=== PATIENT | male | born 1985 | race Caucasian/White ===

== ENCOUNTER 2016-11-03 17:14 | Emergency (ER) | payer MEDICARE, OTHER ==
--- NOTE | ~2016-11-03 | CT71 ---
[facility] A Service of [facility] RADIOLOGY TEXT RESULTS PATIENT: GURWINDER MELENDEZ LOCATION: SED : [birth year] UNIT #: [id number] AGE: [address]: Brandon Warren MD SEX: M ORDER DR: [id number] [place] [id number] E MR#: [id number] [facility] #: [id number] NAME: GURWINDER MELENDEZ : 1985 SEX: M STUDY DATE/TIME: 11/03/2016 18:20 UNIT: SED ROOM: STUDY DESCRIPTION: CT Head Wo Contrast Attending Physician: Brandon Warren M.D. Ordering Physician: Brandon Warren M.D. Primary Care Physician: Bryson Lopes M.D. MEDICAL IMAGING REPORT This report is preliminary unless electronic signature is present. EXAM Head CT without contrast, 11/03/2016 HISTORY Diffuse headache after hitting head today. Hypertension. FINDINGS Multiple axial images were obtained from the skull base to vertex without intravenous contrast administration. This CT exam was performed with one or more of the following radiation dose reduction techniques: Automatic exposure control, adjustment of mA and/or kV according to patient size, and iterative reconstruction. There is stable moderate encephalomalacia in the inferior frontal lobes bilaterally compared with 04/01/[address] Additional areas of cortical atrophy are seen in the lateral right temporal lobe. Prior right frontotemporal craniotomy is noted. Stable small chronic cortical infarcts are again seen in the parasagittal superior right frontal lobe and parasagittal anterior frontal lobes, bilaterally. Old lacunar infarcts are seen in the basal ganglia, bilaterally. There is no midline shift. Generalized atrophy. There is no mass or mass effect, hemorrhage or acute infarct. The visualized paranasal sinuses are clear. IMPRESSION Generalized atrophy and stable bilateral chronic infarcts compared with 04/01/[address] Prior right frontotemporal craniotomy. No acute intracranial abnormality. Dictated by... Zeb Becerril M.D. [facility] A Service of [facility] RADIOLOGY TEXT RESULTS PATIENT: GURWINDER MELENDEZ [place] [facility] [place] [birth year] UNIT #: [id number] AGE: [address]: Brandon Warren MD SEX: M ORDER DR: THIS IS AN ELECTRONICALLY VERIFIED REPORT Zeb Becerril M.D. at 11/04/2016 2:13 PM KRT/maddie TD: 11/03/2016 23:57 JOB #: [id number] MEDICAL IMAGING REPORT Page 1 of 1
--- NOTE | ~2016-11-03 | CT52 ---
[facility] A Service of [facility] RADIOLOGY TEXT RESULTS PATIENT: GURWINDER MELENDEZ LOCATION: SED : [birth year] UNIT #: [id number] AGE: [address]: Brandon Warren MD SEX: M ORDER DR: [id number] [place] [id number] E MR#: [id number] Acc #: [id number] NAME: GURWINDER MELENDEZ : 1985 SEX: M STUDY DATE/TIME: 11/03/2016 17:30 UNIT: SED ROOM: STUDY DESCRIPTION: CT Cervical Spine Wo Cont Attending Physician: Brandon Warren M.D. Ordering Physician: Brandon Warren M.D. Primary Care Physician: Bryson Lopes M.D. MEDICAL IMAGING REPORT This report is preliminary unless electronic signature is present. EXAM CT scan of the cervical spine without contrast, 11/03/2016 HISTORY Neck pain status post fall today and diffuse headache. FINDINGS Spiral CT was performed through the cervical spine without intrathecal contrast administration, as per clinician request. Sagittal and coronal reconstructions were then performed through the cervical spine. This CT exam was performed with one or more of the following radiation dose reduction techniques: Automatic exposure control, adjustment of mA and/or kV according to patient size, and iterative reconstruction. The examination is somewhat limited for determination of discogenic disease due to the lack of intrathecal contrast. Sagittal reconstructions demonstrate straightening of the cervical spine with loss of the normal lordotic curve. The disc spaces are normally maintained in height. There is no anterolisthesis or retrolisthesis. Anterior osteophytes are seen from C2 through C4. There is no CT evidence of cervical spine fracture. IMPRESSION Degenerative change in the cervical spine. No CT evidence of cervical spine fracture. Dictated by... Zeb Becerril M.D. THIS IS AN ELECTRONICALLY VERIFIED REPORT Zeb Becerril M.D. at 11/04/2016 2:13 PM [facility] A Service [facility] RADIOLOGY TEXT RESULTS PATIENT: GURWINDER MELENDEZ LOCATION: SED : [birth year] UNIT #: [id number] AGE: [address]: Brandon Warren MD SEX: M ORDER DR: TD: 11/03/2016 23:49 JOB #: [id number] MEDICAL IMAGING REPORT Page 1 of 1
[~2016-11-03 17:14] MED LIST: ACETAMINOPHEN PR; ALBUTEROL17 GM INH; ALEVE220 M1 PO; ALLEGRA PO; AMITRIPTYLINE100 MG PO; AMITRYPTYLINE PO; AUGMENTIN PO; AUGMENTIN875 M1 DOB; BENADRYL25 M1 PO; BENTYL10 M1 PO; BENTYL10 MG PO; BENTYL20 MG PO; BUSPIRONE HCL10 MG PO; CLONAZEPAM2 MG; CYMBALTA PO; DESYREL50 MG PO; DEXILANT60 MG PO; DICYCLOMINE HCL20 MG PO; DILAUDID PO; DILAUDID2 MG PO; DIVALPROEX SOD500 M1; DOXYCYCLINE PO; EFFEXOR PO; EFFEXOR-XR150 MG PO; ENABLEX15 MG PO; FLEXERIL10 MG PO; FUROSEMIDE40 MG PO; HYDROCODON-ACE1 EAC5 PO; HYDROCODONE-A1 UDTA4 PO; HYOMAX0.125 MG PO; IRON325 ( 651 PO; LASIX PO; LASIX20 MG PO; LEVAQUIN750 M1 PO; LEVAQUIN750 MG PO; LEXAPRO PO; LORTAB 10-3251 EACH; LORTAB 7.5-3251 EACH PO; LORTAB 7.5-5001 TAB PO; LYRICA PO; LYRICA75 MG PO; MELATONIN 5 MG PO; MELATONIN5 M1 PO; MORPHINE TD; MOVANTIK25 MG PO; NAMENDA5 MG PO; NAPROXEN PO; NEXIUM PO; NORCO 10-325 TA1 TAB PO; NORCO 5/325 TAB1 TAB PO; OXYCODONE HCL5 MG PO; PANTOPRAZOLE PO; PANTOPRAZOLE SO40 MG PO; PERCOCET 5-3251 TAB PO; PHENERGAN25 MG PO; PREDNISONE PO; PRILOSEC40 MG PO; PROBIOTIC1 EAC1 PO; PROMETHAZINE PO; PROPRANOLOL HCL40 M1 PO; PROPRANOLOL PO; PROTONIX PO; PROZAC; PROZAC40 MG PO; RANITIDINE HCL150 M1 PO; SKELAXIN PO; TOPAMAX PO; TOPIRAMATE100 MG PO; TORADOL PO; TORADOL10 MG PO; WAL-FEX ALLERGY60 MG PO; XARELTO20 MG PO; ZITHROMAX PO; ZOFRAN ODT4 MG PO; ZOFRAN PO
[2016-12-03] MEDS ORDERED: WATER PILL PO (08:02)
[2016-12-03] MEDS ORDERED: FENTANYL PATCH TOP (08:02)
== END 2016-11-03 19:19 | disposition home or self-care (01) ==
LOC: SED 17:14
DX: S09.90XA Unspecified injury of head, initial encounter (principal); S16.1XXA Strain of muscle, fascia and tendon at neck level, initial encounter; F32.9 Major depressive disorder, single episode, unspecified; F41.9 Anxiety disorder, unspecified; E66.01 Morbid (severe) obesity due to excess calories; Z79.899 Other long term (current) drug therapy; W19.XXXA Unspecified fall, initial encounter; Y92.59 Other trade areas as the place of occurrence of the external cause
CPT/HCPCS: 70450; 72125; 99283